=== PATIENT | female | born 1965 | race Caucasian/White ===

== ENCOUNTER 2019-06-17 15:27 | Emergency (ER) | payer OTHER ==
[~2019-06-17] VITALS: Ht 162.6 cm; Wt 67.1 kg
[2019-06-17] MEDS ORDERED: LISINOPRIL5 MG ORAL (15:39)
[2019-06-17 15:40] VITALS: BP 120/61
[2019-06-17] MEDS ORDERED: Methocarbamol 750mg tab ORAL ONE (16:00)
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
--- NOTE | 2019-06-17 16:43 | Diagnostic Imaging Report ---
Indication: Headache Technique: Contiguous 5 mm thick transaxial imaging of the head obtained in a Siem[employer] Sensation [address] scanner. Soft tissue and bone windows generated. Automatic Exposure Control was utilized. Total Dose length Product (DLP): 965.4mGycm CT Dose Index Volume (CTDIvol): 53.4 mGy Comparison: none Findings: The size and configuration of the cortical sulci, basal cisterns, and ventricles are within normal limits for age. There is no mass effect, midline shift, or edema identified. There is no evidence of acute hemorrhage or abnormal intra-axial or extra-axial fluid collections. The bones and soft tissues are unremarkable. There is opacification in the right ethmoid sinus. Impression: No mass effect, edema or acute bleed. Right ethmoid sinus opacification presumably sinusitis. Correlate clinically [facility] has communicated the preliminary results to the Emergency Department. Their findings are largely concordant with this report. The CT scanner at [facility] is accredited by the [employer] and the scans are performed using dose optimization techniques as appropriate to a performed exam including Automatic Exposure control.
[2019-06-17] MEDS ORDERED: IBUPROFEN600 MG ORAL (16:53)
[2019-06-17] MEDS ORDERED: ROBAXIN-500MG ORAL (16:53)
[2019-06-17] MEDS ORDERED: LIDODERM700 M1 TOPIC (16:53)
[2019-06-17 16:58] VITALS: BP 121/73
== END 2019-06-17 17:00 | disposition home or self-care (01) ==
LOC: EMR 16:06
DX: S00.93XA Contusion of unspecified part of head, initial encounter (principal); S39.012A Strain of muscle, fascia and tendon of lower back, initial encounter; S16.1XXA Strain of muscle, fascia and tendon at neck level, initial encounter; V43.62XA Car passenger injured in collision with other type car in traffic accident, initial encounter; Y92.410 Unspecified street and highway as the place of occurrence of the external cause; I10 Essential (primary) hypertension
CPT/HCPCS: 70450; 99284